=== PATIENT | female | born 1960 | race Caucasian/White ===

== ENCOUNTER → 2017-05-23 | Outpatient (CLI) | payer SELFPAY ==
[2017-05-23 12:15] LABS: HEMOGLOBIN 14.2 g/dl (12.5-16.0); MEAN CELL VOLUME 90 fl (80.0-100.0); MEAN CORPUSCULAR HEMOGLOBIN 31 pg (27.0-31.0); MEAN CORPUSCULAR HGB CONC 35 g/dl (33.0-37.0); MEAN PLATELET VOLUME 10.1 fl (7.4-10.4); PLATELET COUNT 198 K/mm3 (130-400); RED BLOOD COUNT 4.54 M/mm3 (4.10-5.30); REDCELL DISTRIBUTION WIDTH-CV 13.7 % (11.5-14.5)
[2017-05-23 13:43] LABS: ALBUMIN 4.2 gm/dL (3.5-5.0); BILIRUBIN,TOTAL 0.9 mg/dL (0.0-1.0); CALCIUM 9.3 mg/dL (8.4-10.2); CHOLESTEROL RISK RATIO 3.4; CREATININE, serum 0.74 mg/dL (0.52-1.25); POTASSIUM 3.7 mmol/L (3.4-5.0); TOTAL PROTEIN 7.7 gm/dL (6.4-8.2)
== END ==
LOC: COL.LAB 11:41
DX: Z01.89 Encounter for other specified special examinations (principal)

== ENCOUNTER → 2017-06-06 | Outpatient (CLI) | payer SELFPAY ==
[2017-06-06 11:50] LABS: HEMATOCRIT 41.2 % (37.0-47.0); HEMOGLOBIN 14.2 g/dl (12.5-16.0); MEAN CELL VOLUME 90 fl (80.0-100.0); MEAN CORPUSCULAR HEMOGLOBIN 31 pg (27.0-31.0); MEAN CORPUSCULAR HGB CONC 35 g/dl (33.0-37.0); PLATELET COUNT 204 K/mm3 (130-400); REDCELL DISTRIBUTION WIDTH-CV 13.8 % (11.5-14.5)
[2017-06-06 11:58] LABS: ALBUMIN 4.5 gm/dL (3.5-5.0); BILIRUBIN,TOTAL 0.7 mg/dL (0.0-1.0); CALCIUM 9.3 mg/dL (8.4-10.2); CHOLESTEROL RISK RATIO 3.4; CREATININE, serum 0.76 mg/dL (0.52-1.25); POTASSIUM 4.4 mmol/L (3.4-5.0); TOTAL PROTEIN 7.7 gm/dL (6.4-8.2)
[2017-06-07 10:57] LABS: HEPATITIS C VIRUS ANTIBODY Reactive (())
== END ==
LOC: COL.LAB 11:25
DX: K75.9 Inflammatory liver disease, unspecified (principal)

== ENCOUNTER → 2018-03-06 | Outpatient (CLI) | payer SELFPAY | LOC: COL.LAB 10:52 | DX: Z01.89 Encounter for other specified special examinations (principal) | CPT/HCPCS: 87522 ==

== ENCOUNTER → 2018-03-31 | Outpatient (CLI) | payer OTHER ==
[2018-03-31 14:33] LABS: BASO % 0.5 % (0.0-2.0); EOS # 0.2 (0.0-0.7); EOS % 2.5 % (0-4.0); GRAN # 4.4 (1.4-6.5); GRAN % 53.9 % (42.2-75.2); HEMATOCRIT 40.7 % (37.0-47.0); HEMOGLOBIN 13.9 g/dl (12.5-16.0); LYMPH % 36.4 % (20.0-51.0); MEAN CELL VOLUME 90 fl (80.0-100.0); MEAN CORPUSCULAR HEMOGLOBIN 31 pg (27.0-31.0); MEAN CORPUSCULAR HGB CONC 34 g/dl (33.0-37.0); MEAN PLATELET VOLUME 10.2 fl (7.4-10.4); MONO # 0.5 (0.1-0.6); MONO % 6.3 % (1.7-9.3); PLATELET COUNT 194 K/mm3 (130-400)
[2018-03-31 14:37] LABS: PROTHROMBIN TIME 11.7 SECONDS (9.7-12.8)
[2018-03-31 14:38] LABS: ALBUMIN 4.2 gm/dL (3.5-5.0); BILIRUBIN,TOTAL 0.6 mg/dL (0.0-1.0); CALCIUM 9.3 mg/dL (8.4-10.2); CREATININE, serum 0.59 mg/dL (0.52-1.25); POTASSIUM 3.9 mmol/L (3.4-5.0); TOTAL PROTEIN 7.6 gm/dL (6.4-8.2)
[2018-04-01 00:21] LABS: HEPATITIS A ANTIBODY-IGM Negative (Negative); HEPATITIS B SURFACE ANTIGEN Negative (Negative)
[2018-04-04 12:45] LABS: ANTISMOOTH MUSCLE ANTIBODY Negative (Negative)
[2018-04-06 13:44] LABS: A1 PHENOTYPE 126 mg/dL (())
== END ==
LOC: COL.RAD 13:29
PROVIDERS: Physician Assistant
DX: B19.20 Unspecified viral hepatitis C without hepatic coma (principal)

== ENCOUNTER → 2018-04-03 | Outpatient (CLI) | payer OTHER | LOC: COL.RAD 07:17 | DX: B19.20 Unspecified viral hepatitis C without hepatic coma (principal); K80.20 Calculus of gallbladder without cholecystitis without obstruction ==

== ENCOUNTER 2018-07-01 16:59 | Emergency (ER) | payer SELFPAY ==
[~2018-07-01] VITALS: Ht 157.5 cm; Wt 90.0 kg
[2018-07-01 17:02] VITALS: BP 115/75; TEMP 100.4
[2018-07-01] MEDS ORDERED: HARVONI (17:15)
[2018-07-01 18:05] LABS: COLLECTION METHOD CLEAN CATCH
[2018-07-01 18:08] LABS: BASO % 0.4 % (0.0-2.0); EOS % 0.2 % (0-4.0); GRAN # 5.7 (1.4-6.5); HEMATOCRIT 39.1 % (37.0-47.0); HEMOGLOBIN 13.5 g/dl (12.5-16.0); LYMPH # 2.4 (1.2-3.4); LYMPH % 25.8 % (20.0-51.0); MEAN CELL VOLUME 89 fl (80.0-100.0); MEAN CORPUSCULAR HEMOGLOBIN 31 pg (27.0-31.0); MEAN CORPUSCULAR HGB CONC 35 g/dl (33.0-37.0); MEAN PLATELET VOLUME 10.4 fl (7.4-10.4); MONO # 1.2 (0.1-0.6); MONO % 12.3 % (1.7-9.3); PLATELET COUNT 159 K/mm3 (130-400); REDCELL DISTRIBUTION WIDTH-CV 13.5 % (11.5-14.5)
[2018-07-01 18:11] LABS: PH 6 (5-8); SQUAMOUS EPITHELIAL 0-2 /hpf; URINE APPEARANCE Clear; URINE BACTERIA None Seen /hpf; URINE BILIRUBIN Negative (NEGATIVE); URINE BLOOD Negative (NEGATIVE); URINE COLOR Yellow; URINE GLUCOSE Negative (NEGATIVE); URINE KETONE Negative (NEGATIVE); URINE LEUKOCYTE ESTERASE Negative (NEGATIVE); URINE NITRATE Negative (NEGATIVE); URINE PROTEIN(semi-quant) Negative (NEGATIVE); URINE RBC 0-2 /hpf; URINE UROBILINOGEN >=4.0 mg/dL (NEGATIVE)
[2018-07-01 18:12] LABS: BILIRUBIN,TOTAL 0.8 mg/dL (0.0-1.0); CALCIUM 8.9 mg/dL (8.4-10.2); CREATININE, serum 0.64 mg/dL (0.52-1.25); TOTAL PROTEIN 7.4 gm/dL (6.4-8.2)
[2018-07-01] MEDS ORDERED: AMOXICILLIN 8751 TAB PO (19:04)
[2018-07-01] MEDS ORDERED: AKTOB 5 ML5 ML OP (19:04)
[2018-07-01 19:19] VITALS: PULSE 73
== END 2018-07-01 19:19 | disposition home or self-care (01) ==
LOC: COL.ER 16:59
PROVIDERS: Physician Assistant
DX: H10.9 Unspecified conjunctivitis (principal); J32.0 Chronic maxillary sinusitis; B97.0 Adenovirus as the cause of diseases classified elsewhere; F17.210 Nicotine dependence, cigarettes, uncomplicated
CPT/HCPCS: Q9967

== ENCOUNTER → 2018-08-04 | Outpatient (CLI) | payer OTHER ==
[~2018-08-04] MED LIST: AKTOB 5 ML5 ML OP; AMOXICILLIN 8751 TAB PO; HARVONI
== END ==
LOC: COL.LAB 07:09
DX: B19.20 Unspecified viral hepatitis C without hepatic coma (principal)
CPT/HCPCS: 87522

== ENCOUNTER → 2018-10-01 | Outpatient (CLI) | payer OTHER | LOC: COL.LAB 15:12 | DX: B19.20 Unspecified viral hepatitis C without hepatic coma (principal) | CPT/HCPCS: 87522 ==